=== PATIENT | female | born 1970 | race Caucasian/White ===

== ENCOUNTER 2020-12-22 18:01 | Emergency (ER) | payer OTHER ==
[~2020-12-22] VITALS: Ht 160 cm; Wt 77.1 kg
[~2020-12-22 18:01] MED LIST: ALL DAY ALLERGY10 MG; APAP500; CARISOPRODOL 3350 MG PO; CATAPRES0.2 MG PO; CLONAZEPAM 1 MG1 M1 PO; CLONAZEPAM2 MG PO; CLONIDINE HCL0.2 M2 PO; EXCEDRIN CAPLE1 EACH PO; FLEXERIL PO; GABAPENTIN 100100 MG PO; GABAPENTIN600 M1 PO; HYDRALAZINE 2525 MG GT; HYDRALAZINE 2525 MG PO; HYDROCODONE-AP1 EAC6 PO; IBUPROFEN 600600 M1 PO; METHADONE HCL40 MG PO; NEURONTIN600 MG PO; NORCO 5-325 TA1 EACH PO; OXYCONTIN10 M1 PO; POTASSIUM20 PO; PRILOSEC 20 MG20 MG PO; TRAMADOL 50 MG50 MG PO; ULTRAM 50MG TAB50 MG PO; VALIUM10 MG PO; VALIUM2 MG PO; VALIUM5 MG PO; XANAX 0.25 MG0.25 MG PO; XANAX1 MG PO; ZOFRAN ODT4 MG DISSOLVE; ZOFRAN ODT4 MG PO
[2020-12-22] MEDS ORDERED: HYDROCODON-ACE1 EAC8 PO (19:57)
[2020-12-22] MEDS ORDERED: ZOFRAN ODT4 MG PO (20:03)
[2020-12-22] MEDS ORDERED: IBUPROFEN 800800 M1 PO (20:03)
[2020-12-22 20:41] VITALS: BP 155/87
== END 2020-12-22 20:41 | disposition home or self-care (01) ==
LOC: M.ERS 18:01
DX: S82.891A Other fracture of right lower leg, initial encounter for closed fracture (principal); I10 Essential (primary) hypertension; G43.909 Migraine, unspecified, not intractable, without status migrainosus; F17.210 Nicotine dependence, cigarettes, uncomplicated; Z88.5 Allergy status to narcotic agent; Z88.6 Allergy status to analgesic agent; Z88.0 Allergy status to penicillin; Z88.3 Allergy status to other anti-infective agents; Z88.8 Allergy status to other drugs, medicaments and biological substances; Z90.710 Acquired absence of both cervix and uterus; Z90.49 Acquired absence of other specified parts of digestive tract; Z86.73 Personal history of transient ischemic attack (TIA), and cerebral infarction without residual deficits; X50.1XXA Overexertion from prolonged static or awkward postures, initial encounter; Y93.89 Activity, other specified; Y92.89 Other specified places as the place of occurrence of the external cause; Y99.9 Unspecified external cause status